=== PATIENT | female | born 1975 | race Two or more races ===

== ENCOUNTER → 2023-05-19 | Outpatient (CLI) | payer SELFPAY ==
[2023-05-22 14:08] LABS: ANTINUCLEAR ANTIBODIES DIRECT Positive (Negative)
[2023-05-22 15:08] LABS: Mycoplasma Pneum AB IgG 1432 U/mL (0-99); Mycoplasma pneum. AB IgM < 770 U/mL (0-769)
== END | disposition home or self-care (01) ==
LOC: MFPLAB 15:02
PROVIDERS: PCP Family Medicine; Visit Provider Family Medicine
DX: R76.8 Other specified abnormal immunological findings in serum (principal)
CPT/HCPCS: 36415; 86038; 86738